=== PATIENT | male | born 1995 | race Caucasian/White ===

== ENCOUNTER 2017-02-17 22:15 | Emergency (ER) | payer MEDICAID ==
[~2017-02-17] VITALS: Ht 172.7 cm; Wt 81.6 kg
[2017-02-17 22:22] VITALS: BP 140/90
[2017-02-18] MEDS ORDERED: IBUPROFEN 600 MG TAB PO ONE (00:45)
[2017-02-18] MEDS ORDERED: LORazepam 0.5 MG TAB PO ONE (00:45)
== END 2017-02-18 01:15 | disposition home or self-care (01) ==
LOC: EDBD 22:15 → ER 22:21
DX: F41.9 Anxiety disorder, unspecified (principal); M79.672 Pain in left foot; M79.671 Pain in right foot; F12.10 Cannabis abuse, uncomplicated

== ENCOUNTER 2017-03-27 16:05 | Emergency (ER) | payer MEDICAID ==
[~2017-03-27] VITALS: Ht 172.7 cm; Wt 81.6 kg
[2017-03-27] MEDS ORDERED: LORazepam 2MG/ML-1ML VIAL IV ONE (19:00)
[2017-03-27] MEDS ORDERED: SODIUM CHLORIDE 0.9% 1,000 ML IV ONE (19:00)
[2017-03-27 20:06] LABS: Albumin 4.3 g/dL (3.4-5.0); Anion Gap 8 (5-15); Blood Urea Nitrogen 5 mg/dL (7-18); Calcium 8.8 mg/dL (8.5-10.1); Carbon Dioxide 26 mmol/L (21-32); Chloride 107 mmol/L (98-107); Glucose 101 mg/dL (74-106); Sodium 141 mmol/L (136-145)
[2017-03-27 20:08] LABS: Aspartate Aminotransferase 31 U/L (15-37); BUN/Creatinine Ratio 5.9; GFR African American 144 mL/min; GFR Non-African American 119 mL/min
[2017-03-27 20:09] LABS: Basophils # (auto) 0 uL; Basophils % (auto) 0.1 % (0.0-2.0); Eosinophils # (auto) 0 uL; Eosinophils % (auto) 0.2 % (0.0-7.0); Hematocrit 45.6 % (41.0-53.0); Hemoglobin 15.3 g/dL (13.5-17.5); Lymphocytes # (auto) 1.3 uL; Lymphocytes % (auto) 9.6 % (10.0-50.0); Mean Corpuscular Hemoglobin 30.6 pg (28.0-32.0); Mean Corpuscular Hgb Conc. 33.6 g/dL (32.0-36.0); Mean Corpuscular Volume 91.1 fL (80.0-100.0); Mean Platelet Volume 10.9 fL (7.4-10.4); Monocytes # (auto) 0.9 uL; Monocytes % (auto) 6.9 % (0.0-12.0); Neutrophils # (auto) 11.4 uL; Neutrophils % (auto) 83.2 % (37.0-80.0); Platelet Count (auto) 226 10^3/uL (140-450); Red Cell Distribution Width 14.7 % (11.6-16.0); SUSPECT VIEW TRANSMISSION; White Blood Cell 13.7 10^3/uL (4.4-10.8)
[2017-03-27 20:10] LABS: Alkaline Phosphatase 85 U/L (45-117); Bilirubin, Total 0.4 mg/dL (0.2-1.0); Total Protein 7.4 g/dL (6.4-8.2)
[2017-03-27 21:00] VITALS: BP 106/64
[2017-03-27 21:32] LABS: Giant Platelets Few; Platelet Estimate Adequate
== END 2017-03-27 21:38 | disposition home or self-care (01) ==
LOC: ER 16:05 → EDBD 16:05 → ER 21:38
DX: R56.9 Unspecified convulsions (principal); F41.9 Anxiety disorder, unspecified; F12.10 Cannabis abuse, uncomplicated; F15.10 Other stimulant abuse, uncomplicated; F14.10 Cocaine abuse, uncomplicated; Z79.899 Other long term (current) drug therapy
CPT/HCPCS: 36415; 80053; 80320; 85025; 96361; 96374; 99284; J2060; J7030

== ENCOUNTER 2017-03-30 01:09 | Emergency (ER) | payer MEDICAID ==
[~2017-03-30] VITALS: Ht 177.8 cm; Wt 86.2 kg
[2017-03-30 05:37] VITALS: BP 146/67
[2017-03-30 06:22] LABS: Basophils # (auto) 0.1 uL; Basophils % (auto) 0.4 % (0.0-2.0); Eosinophils # (auto) 0.1 uL; Hematocrit 48.5 % (41.0-53.0); Hemoglobin 16.5 g/dL (13.5-17.5); Lymphocytes # (auto) 2.5 uL; Lymphocytes % (auto) 17.4 % (10.0-50.0); Mean Corpuscular Hemoglobin 31.5 pg (28.0-32.0); Mean Corpuscular Volume 92.5 fL (80.0-100.0); Mean Platelet Volume 10.4 fL (7.4-10.4); Monocytes # (auto) 1.3 uL; Monocytes % (auto) 9.1 % (0.0-12.0); Neutrophils # (auto) 10.4 uL; Neutrophils % (auto) 72.1 % (37.0-80.0); Platelet Count (auto) 233 10^3/uL (140-450); Red Cell Distribution Width 14.6 % (11.6-16.0); SUSPECT VIEW TRANSMISSION; White Blood Cell 14.4 10^3/uL (4.4-10.8)
[2017-03-30 06:59] LABS: Albumin 4.4 g/dL (3.4-5.0); Alkaline Phosphatase 96 U/L (45-117); Anion Gap 8 (5-15); Aspartate Aminotransferase 34 U/L (15-37); BUN/Creatinine Ratio 13.9; Bilirubin, Total 0.5 mg/dL (0.2-1.0); Blood Urea Nitrogen 10 mg/dL (7-18); Calcium 9.3 mg/dL (8.5-10.1); Carbon Dioxide 28 mmol/L (21-32); Chloride 103 mmol/L (98-107); GFR African American 174 mL/min; GFR Non-African American 144 mL/min; Glucose 111 mg/dL (74-106); Magnesium 2.7 mg/dL (1.6-2.6); Potassium 4.4 mmol/L (3.5-5.1); Sodium 139 mmol/L (136-145)
[2017-03-30 07:03] LABS: Giant Platelets Few; Large Platelets FEW; Platelet Estimate Adequate
== END 2017-03-30 06:45 | disposition home or self-care (01) ==
LOC: ER 01:09
DX: F41.9 Anxiety disorder, unspecified (principal); F12.10 Cannabis abuse, uncomplicated; F15.10 Other stimulant abuse, uncomplicated; F14.10 Cocaine abuse, uncomplicated
CPT/HCPCS: 36415; 80053; 83735; 84484; 85025; 93005; 94761

== ENCOUNTER 2017-04-09 22:41 | Emergency (ER) | payer MEDICAID ==
[~2017-04-09] VITALS: Ht 180.3 cm; Wt 90.7 kg
[2017-04-09 23:05] LABS: Basophils # (auto) 0.1 uL; Basophils % (auto) 0.7 % (0.0-2.0); Eosinophils # (auto) 0.1 uL; Hematocrit 45.7 % (41.0-53.0); Hemoglobin 15.5 g/dL (13.5-17.5); Lymphocytes # (auto) 3.1 uL; Lymphocytes % (auto) 25.9 % (10.0-50.0); Mean Corpuscular Hemoglobin 30.7 pg (28.0-32.0); Mean Corpuscular Hgb Conc. 33.8 g/dL (32.0-36.0); Mean Corpuscular Volume 90.7 fL (80.0-100.0); Mean Platelet Volume 9.8 fL (7.4-10.4); Monocytes % (auto) 8.2 % (0.0-12.0); Neutrophils # (auto) 7.8 uL; Neutrophils % (auto) 64.2 % (37.0-80.0); Platelet Count (auto) 283 10^3/uL (140-450); Red Cell Distribution Width 14.5 % (11.6-16.0); SUSPECT VIEW TRANSMISSION; White Blood Cell 12.1 10^3/uL (4.4-10.8)
[2017-04-09 23:23] LABS: Anion Gap 15 (5-15); Aspartate Aminotransferase 19 U/L (15-37); BUN/Creatinine Ratio 8.3; Blood Urea Nitrogen 8 mg/dL (7-18); Calcium 8.7 mg/dL (8.5-10.1); Carbon Dioxide 20 mmol/L (21-32); Chloride 109 mmol/L (98-107); GFR African American 125 mL/min; GFR Non-African American 103 mL/min; Glucose 77 mg/dL (74-106); Magnesium 2.1 mg/dL (1.6-2.6); Potassium 3.7 mmol/L (3.5-5.1); Sodium 144 mmol/L (136-145)
[2017-04-09 23:28] LABS: Alkaline Phosphatase 82 U/L (45-117); Bilirubin, Total 0.4 mg/dL (0.2-1.0); Total Protein 7.5 g/dL (6.4-8.2)
[2017-04-10] MEDS ORDERED: IBUPROFEN 600 MG TAB PO ONE (03:15)
[2017-04-10 03:51] VITALS: BP 121/74
[2017-04-10 03:56] LABS: Urine Bilirubin Negative (Negative); Urine Blood Negative /uL (Negative); Urine Color Yellow (Yellow); Urine Glucose Normal (Normal); Urine Ketone TRACE (Negative); Urine Nitrite Negative (Negative); Urine RBC <1 /hpf (0 - 3); Urine Urobilinogen Normal (Negative); Urine pH 5.5 (5.0-8.0)
[2017-04-10] MEDS ORDERED: ALPRAZolam 0.25 MG TAB ONE (04:49)
[2017-04-10] MEDS ORDERED: ALPRAZolam 0.5 MG TAB PO ONE (05:00)
== END 2017-04-10 05:03 | disposition home or self-care (01) ==
LOC: ER 22:41
DX: F41.9 Anxiety disorder, unspecified (principal); R07.89 Other chest pain; F12.10 Cannabis abuse, uncomplicated; F15.10 Other stimulant abuse, uncomplicated; F14.10 Cocaine abuse, uncomplicated
CPT/HCPCS: 36415; 80053; 80307; 81001; 83735; 84484; 85025; 93005

== ENCOUNTER 2017-04-13 17:48 | Emergency (ER) | payer MEDICAID | END 2017-04-13 19:11 | disposition left against medical advice (07) | LOC: EDBD 17:48 → ER 17:52 | DX: R68.2 Dry mouth, unspecified (principal); R42 Dizziness and giddiness; Z53.21 Procedure and treatment not carried out due to patient leaving prior to being seen by health care provider ==

== ENCOUNTER 2017-05-11 00:30 | Emergency (ER) | payer MEDICAID ==
[~2017-05-11] VITALS: Ht 177.8 cm; Wt 90.7 kg
[2017-05-11 07:58] LABS: Basophils # (auto) 0.1 uL; Basophils % (auto) 0.5 % (0.0-2.0); CONDITION AutoValidated; Eosinophils # (auto) 0.2 uL; Eosinophils % (auto) 1.4 % (0.0-7.0); Hematocrit 44.8 % (41.0-53.0); Hemoglobin 15.1 g/dL (13.5-17.5); Lymphocytes # (auto) 2.5 uL; Lymphocytes % (auto) 22.7 % (10.0-50.0); Mean Corpuscular Hemoglobin 30.9 pg (28.0-32.0); Mean Corpuscular Hgb Conc. 33.6 g/dL (32.0-36.0); Mean Corpuscular Volume 92.1 fL (80.0-100.0); Mean Platelet Volume 9.9 fL (7.4-10.4); Monocytes # (auto) 0.8 uL; Monocytes % (auto) 7.5 % (0.0-12.0); Neutrophils # (auto) 7.5 uL; Neutrophils % (auto) 67.9 % (37.0-80.0); Platelet Count (auto) 223 10^3/uL (140-450); Red Cell Distribution Width 15.2 % (11.6-16.0); SUSPECT SEE PRINTOUT
[2017-05-11 08:18] LABS: Acetaminophen < 2.0 ug/mL (10-30)
[2017-05-11 08:23] LABS: BUN/Creatinine Ratio 14.7; Bilirubin, Total 0.3 mg/dL (0.2-1.0); Calcium 8.2 mg/dL (8.5-10.1); Magnesium 2.3 mg/dL (1.6-2.6); Potassium 4.2 mmol/L (3.5-5.1); Total Protein 7.1 g/dL (6.4-8.2)
[2017-05-11 08:45] LABS: Salicylate 5.2 mg/dL (2.8-20.0)
[2017-05-11] MEDS ORDERED: OLANZapine 5 MG TAB PO ONE (11:00)
[2017-05-11] MEDS ORDERED: ALPRAZolam 0.5 MG TAB PO ONE (11:00)
[2017-05-11] MEDS ORDERED: SODIUM CHLORIDE 0.9% 1,000 ML IV ONE (11:00)
[2017-05-11 13:05] LABS: Urine Bilirubin Negative (Negative); Urine Blood Negative /uL (Negative); Urine Color Yellow (Yellow); Urine Glucose Normal (Normal); Urine Ketone Negative (Negative); Urine Nitrite Negative (Negative); Urine RBC <1 /hpf (0 - 3); Urine Urobilinogen Normal (Negative); Urine pH 7.5 (5.0-8.0)
[2017-05-11 15:50] VITALS: BP 135/78
== END 2017-05-11 08:10 | disposition home or self-care (01) ==
LOC: ER 00:30 → EDBD 00:30 → ER 08:10
DX: F32.9 Major depressive disorder, single episode, unspecified (principal); R45.851 Suicidal ideations; F12.10 Cannabis abuse, uncomplicated; F15.10 Other stimulant abuse, uncomplicated; F14.10 Cocaine abuse, uncomplicated
CPT/HCPCS: 36415; 71020; 80053; 80307; 80329; 81001; 83735; 85025; 96360; 99285; J7030

== ENCOUNTER 2018-05-05 01:19 | Emergency (ER) | payer OTHER ==
[~2018-05-05] VITALS: Ht 180.3 cm; Wt 90.7 kg
[2018-05-05 02:14] VITALS: BP 124/82
== END 2018-05-05 06:35 | disposition left against medical advice (07) ==
LOC: ER 01:22
DX: M79.672 Pain in left foot (principal); Z53.21 Procedure and treatment not carried out due to patient leaving prior to being seen by health care provider

== ENCOUNTER 2018-05-05 08:49 | Emergency (ER) | payer OTHER ==
[~2018-05-05] VITALS: Ht 180.3 cm; Wt 90.7 kg
[2018-05-05 10:24] VITALS: BP 137/73
== END 2018-05-05 10:26 | disposition home or self-care (01) ==
LOC: ER 08:54
DX: F19.10 Other psychoactive substance abuse, uncomplicated (principal); R11.2 Nausea with vomiting, unspecified; F15.10 Other stimulant abuse, uncomplicated

== ENCOUNTER 2018-05-17 16:05 | Emergency (ER) | payer OTHER ==
[~2018-05-17] VITALS: Ht 180.3 cm; Wt 90.7 kg
[2018-05-17 16:43] VITALS: BP 138/84
== END 2018-05-17 17:48 | disposition left against medical advice (07) ==
LOC: ER 16:05
DX: F41.9 Anxiety disorder, unspecified (principal); Z53.21 Procedure and treatment not carried out due to patient leaving prior to being seen by health care provider

== ENCOUNTER 2018-05-18 02:18 | Emergency (ER) | payer OTHER ==
[~2018-05-18] VITALS: Ht 193 cm; Wt 90.7 kg
[2018-05-18 02:23] VITALS: BP 117/87
== END 2018-05-18 05:32 | disposition left against medical advice (07) ==
LOC: ER 02:27
DX: F41.9 Anxiety disorder, unspecified (principal); Z53.21 Procedure and treatment not carried out due to patient leaving prior to being seen by health care provider

== ENCOUNTER 2018-07-08 06:59 | Emergency (ER) | payer OTHER ==
[~2018-07-08] VITALS: Ht 182.9 cm; Wt 76.7 kg
[2018-07-08 07:12] VITALS: BP 129/90
[2018-07-08] MEDS ORDERED: diphenhdrAMINE HCL 50 MG/1 ML VL IM ONE ×2 (07:30→08:00)
== END 2018-07-08 08:20 | disposition home or self-care (01) ==
LOC: EDBD 06:59 → ER 06:59
DX: F41.9 Anxiety disorder, unspecified (principal)
CPT/HCPCS: 93005; 96372; 99284; J1200

== ENCOUNTER 2019-09-16 10:55 | Inpatient (IN) | payer MEDICAID ==
[~2019-09-16] VITALS: Ht 180.3 cm; Wt 68.0 kg
[2019-09-16] MEDS ORDERED: SODIUM CHLORIDE 0.9% 500 ML IV ONE (10:56)
[2019-09-16] MEDS ORDERED: CLINDAMYCIN 600MG IV 50 ML IV ONE (11:00)
[2019-09-16 12:01] LABS: Basophils # (auto) 0.1 uL; Basophils % (auto) 0.6 % (0.0-2.0); Eosinophils # (auto) 1.1 uL; Eosinophils % (auto) 10.7 % (0.0-7.0); Hematocrit 45.5 % (41.0-53.0); Hemoglobin 14.7 g/dL (13.5-17.5); Lymphocytes # (auto) 1.5 uL; Lymphocytes % (auto) 14.8 % (10.0-50.0); Mean Corpuscular Hemoglobin 30.2 pg (28.0-32.0); Mean Corpuscular Hgb Conc. 32.2 g/dL (32.0-36.0); Mean Corpuscular Volume 93.8 fL (80.0-100.0); Monocytes # (auto) 0.6 uL; Monocytes % (auto) 6.2 % (0.0-12.0); Neutrophils % (auto) 67.7 % (37.0-80.0); Nucleated Red Blood Cells % 0.1 %; Platelet Count (auto) 308 10^3/uL (140-450); Red Blood Cells 4.86 10^6/uL (4.5-5.90); Red Cell Distribution Width 15.5 % (11.8-14.3); White Blood Cell 10.4 10^3/uL (4.4-10.8)
[2019-09-16] MEDS ORDERED: PROMETHAZINE HCL 25 MG/ML 1ML IV PRN (13:45)
[2019-09-16] MEDS ORDERED: traMADol HCL 50 MG TAB PO PRN (13:45)
[2019-09-16] MEDS ORDERED: ACETAMINOPHEN 500 MG TAB PO PRN (13:45)
[2019-09-16] MEDS ORDERED: TEMAZEPAM 15 MG CAP PO PRN (13:45)
[2019-09-16] MEDS ORDERED: LACTULOSE 20Gm/30ML SOLN PO PRN (13:45)
[2019-09-16] MEDS: CLINDAMYCIN 600MG IV 50 ML IV SCH ×2 (14:00→22:35)
[2019-09-16] MEDS ORDERED: LEVOFLOXACIN 500MG 100 ML IV ONE (14:00)
[2019-09-16] MEDS: SODIUM CHLORIDE 0.9% 1,000 ML IV SCH ×2 (14:25→23:44)
[2019-09-16] MEDS: KETOROLAC TROMETH 30 MG/ML 1ML VIAL IV PRN ×2 (14:25→21:29)
[2019-09-16 15:20] LABS: Albumin 3.1 g/dL (3.4-5.0); BUN/Creatinine Ratio 8.2; Calcium 8.7 mg/dL (8.5-10.1); Potassium 3.9 mmol/L (3.5-5.1)
[2019-09-16 15:22] LABS: Bilirubin, Total 0.3 mg/dL (0.2-1.0); Total Protein 7.1 g/dL (6.4-8.2)
--- NOTE | 2019-09-16 15:30 | NUR ---
Pt Arrived on Unit Pt arrived on unit via stretcher. Pt is a/ox4 with no s/s of distress or SOB. Pt was able to scoot to bed from stretcher with no difficulty. Safety measures maintained with call light within reach, bed in lowest position and side rails up. Will continue to monitor for changes q1hr and prn.
--- NOTE | 2019-09-16 16:10 | NUR ---
Wound Pictures Taken for Reference Applied optifoam and medical tape to wound after picture taken. Minimal serous fluid draining from site. Reinforced dressing with stocking to keep intact. Will continue to monitor.
[2019-09-16 16:52] VITALS: BP 132/72
[2019-09-16 17:07] VITALS: BP 132/72
--- NOTE | 2019-09-16 17:24 | NUR ---
Pt Medications Pt states he does not know his current list of medications. States he can have someone bring in list tomorrow.
--- NOTE | 2019-09-16 18:04 | NUR ---
[facility] Nares Sent to Lab
--- NOTE | 2019-09-16 18:50 | NUR ---
Pt Is Demanding to Be see By an MD Pt stated that he "needs to be seen hiwot". That his wound to his leg is not cellulitis and needs to have treatment now. Discussed with pt that this is why he is hospitalized, we are treating him with IV antibiotics and we are aware of his wound. I told him that an MD will see him in the Am but for now he is stable and we are aware of his treatment needs. Pt stated that he needs more treatment.
--- NOTE | 2019-09-16 19:55 | NUR ---
Opening Shift Note Assumed care of patient, alert and oriented x 4. No S/S of distress/SOB. Patient C/O pain 7/10 to left leg. Bed in lowest locked position, side rails up x 2, call light within reach. Instructed on POC and to call for assist PRN, will continue to monitor for changes Q1hr and PRN.
[2019-09-16 20:00] VITALS: BP 141/75
[2019-09-16 22:00] VITALS: BP 141/75
--- NOTE | 2019-09-16 22:00 | NUR ---
Patient requesting Ativan. Appeared agitated. Patient stated, "It's the only thing that helps me to sleep well at night." Gave patient the option to take ordered Restoril but patient reported he does not want to take it and refused med. Jarad Kent NP. Made aware of patient's request and agitation. Received verbal order to discontinue Restoril and order Ativan 0.5mg IV HS PRN. Will carry out orders and continue care.
[2019-09-16] MEDS ORDERED: LORazepam 2MG/ML-1ML VIAL IV PRN (22:15)
[2019-09-17] MEDS: KETOROLAC TROMETH 30 MG/ML 1ML VIAL IV PRN (03:53)
[2019-09-17 05:00] VITALS: BP 106/62
[2019-09-17] MEDS: CLINDAMYCIN 600MG IV 50 ML IV SCH (06:11)
[2019-09-17 09:00] VITALS: BP 104/62
[2019-09-17] MEDS ORDERED: ENOXAPARIN SOD 40 MG/0.4 ML SYRINGE SC SCH (10:00)
[2019-09-17] MEDS ORDERED: LEVOFLOXACIN 500MG 100 ML IV SCH (10:00)
[2019-09-17] MEDS: SODIUM CHLORIDE 0.9% 1,000 ML IV SCH (10:12)
--- NOTE | 2019-09-17 10:20 | NUR ---
PATIENTS GRANDFATHER ON THE LINE REQUESTING INFORMATION REGARDING PATIENT STATUS. INFORMED THAT NO INFORMATION COULD BE GIVEN DUE TO NO PASSWORD BEING SET UP. TRANSFERRED GRANDFATHER TO PATIENTS ROOM. THIS RN WALKED INTO PATIENT ROOM AND WITNESSED PATIENT ANSWER PHONE. PATIENT THEN HUNG UP PHONE AND ASKED THE NURSE "WHY DID YOU DO THAT?" THIS RN ASKED THE PATIENT WHAT HAPPENED AND THE PATIENT STATED "YOU HUNG UP THE PHONE ON MY GRANDPA, I DON'T WANT YOU MY NURSE ANYMORE." THIS RN STATED THAT HE HAD DONE NOTHING TO THE PHONE CALL BUT PATIENT REFUSED TO LISTEN.
--- NOTE | 2019-09-17 10:30 | NUR ---
PATIENT APOLOGIZED FOR RAISING HIS VOICE TO THIS RN. STATED HE WAS JUST UPSET ABOUT BEING "RUDELY AWAKENED."
--- NOTE | 2019-09-17 12:00 | NUR ---
IV removal IV DC'd with clean sterile technique, catheter fully intact. Pressure dressing applied to site. Patient tolerated well. Patient refused to have new IV placed.
--- NOTE | 2019-09-17 12:15 | NUR ---
Called wound care nurse. No one available to answer phone call. will attempt at a later time.
--- NOTE | 2019-09-17 12:43 | NUR ---
PATIENT ROLLED OUT OF ROOM IN WHEELCHAIR. PATIENT STATING HE WAS GOING HOME BECAUSE HE NEEDED TO WORK. PATIENT INSTRUCTED OF RISKS OF LEAVING HOSPITAL WITHOUT BEING SEEN BY ATTENDING [place]. PATIENT STILL DETERMINED TO LEAVE. REFUSED TO SIGN PAPERWORK. JUSTO Rod ANGY TO INFORM OF SITUATION.
== END 2019-09-17 12:43 | disposition left against medical advice (07) | DRG 383 ==
LOC: ER 10:55 → EDBD 10:55 → OVERFLOW 10:56 → CENTRAL 15:34
PROVIDERS: ADMIT Internal Medicine; ATTEND Internal Medicine
DX: L02.416 Cutaneous abscess of left lower limb (principal); S81.802A Unspecified open wound, left lower leg, initial encounter; X58.XXXA Exposure to other specified factors, initial encounter; L03.116 Cellulitis of left lower limb; Z53.29 Procedure and treatment not carried out because of patient's decision for other reasons; Z82.49 Family history of ischemic heart disease and other diseases of the circulatory system; Z83.3 Family history of diabetes mellitus; Y93.89 Activity, other specified; Y92.89 Other specified places as the place of occurrence of the external cause; Y99.8 Other external cause status
CPT/HCPCS: 36415; 73700; 80053; 85025; 87040; 87081; 94761; 96361; 96365; 96367; 96375; G0378; J1885; J1956; J3490

== ENCOUNTER 2019-10-15 04:02 | Emergency (ER) | payer MEDICAID ==
[~2019-10-15] VITALS: Ht 177.8 cm; Wt 90.7 kg
[2019-10-15 05:21] LABS: Urine WBC None Seen /hpf (0 - 3)
[2019-10-15 05:27] LABS: Urine Bacteria NONE SEEN /hpf (None Seen); Urine Blood Negative /uL (Negative); Urine Specific Gravity 1.001 (1.001-1.035)
[2019-10-15 05:52] LABS: Alcohol, Urine < 3.0 mg/dL (0-5); Amphetamine Screen, Urine NEGATIVE (NEGATIVE); Barbiturate Scree,Urine NEGATIVE (NEGATIVE); Benzodiazephine Screen, Urine NEGATIVE (NEGATIVE); Cannabinoid Screen, Urine POSITIVE (NEGATIVE); Cocaine Screen, Urine NEGATIVE (NEGATIVE); Opiate Scree,Urine NEGATIVE (NEGATIVE); Phencyclidine Screen, Urine NEGATIVE (NEGATIVE)
[2019-10-15 06:32] LABS: Basophils # (auto) 0.1 uL; Basophils % (auto) 1.1 % (0.0-2.0); Eosinophils # (auto) 0.4 uL; Eosinophils % (auto) 4.4 % (0.0-7.0); Hematocrit 38.8 % (41.0-53.0); Hemoglobin 12.7 g/dL (13.5-17.5); Lymphocytes # (auto) 1.7 uL; Lymphocytes % (auto) 18.7 % (10.0-50.0); Mean Corpuscular Hemoglobin 29.3 pg (28.0-32.0); Mean Corpuscular Hgb Conc. 32.8 g/dL (32.0-36.0); Mean Corpuscular Volume 89.3 fL (80.0-100.0); Monocytes # (auto) 0.8 uL; Monocytes % (auto) 9.1 % (0.0-12.0); Neutrophils # (auto) 6.1 uL; Neutrophils % (auto) 66.7 % (37.0-80.0); Platelet Count (auto) 259 10^3/uL (140-450); Red Blood Cells 4.34 10^6/uL (4.5-5.90); Red Cell Distribution Width 15.7 % (11.8-14.3); White Blood Cell 9.1 10^3/uL (4.4-10.8)
[2019-10-15 06:42] LABS: Acetaminophen < 2.0 ug/mL (10-30); Albumin 3.3 g/dL (3.4-5.0); BUN/Creatinine Ratio 13.4; Calcium 8.2 mg/dL (8.5-10.1); Potassium 3.8 mmol/L (3.5-5.1); Salicylate < 1.7 mg/dL (2.8-20.0)
[2019-10-15 06:45] LABS: Bilirubin, Total 0.1 mg/dL (0.2-1.0); Total Protein 7.1 g/dL (6.4-8.2)
[2019-10-15 06:48] VITALS: BP 119/73
[2019-10-15] MEDS ORDERED: ACETAMINOPHEN 325 MG TAB PO ONE (08:15)
[2019-10-15] MEDS ORDERED: OLANZapine 5 MG TAB PO ONE (10:00)
[2019-10-15] MEDS ORDERED: HYDROcodone-ACET 10/325MG TAB PO ONE (10:00)
[2019-10-15] MEDS ORDERED: NEOMYCIN-BACITRACIN-POLYM UNITDOSE PKG TOP OINT TOP ONE (16:09)
== END 2019-10-15 12:54 | disposition home or self-care (01) ==
LOC: ER 04:02 → EDBD 04:02 → ER 12:54
DX: F31.9 Bipolar disorder, unspecified (principal)
CPT/HCPCS: 36415; 80053; 80307; 80329; 81001; 85025

== ENCOUNTER 2020-10-18 21:34 | Emergency (ER) | payer MEDICAID ==
[~2020-10-18] VITALS: Ht 167.6 cm; Wt 90.7 kg
[2020-10-18 21:50] VITALS: BP 129/79
== END 2020-10-18 21:58 | disposition left against medical advice (07) ==
LOC: EDBD 21:34 → ER 21:36
DX: F10.920 Alcohol use, unspecified with intoxication, uncomplicated (principal); Z53.21 Procedure and treatment not carried out due to patient leaving prior to being seen by health care provider

== ENCOUNTER 2023-05-04 00:55 | Emergency (ER) | payer MEDICAID ==
[~2023-05-04] VITALS: Ht 172.7 cm; Wt 85.0 kg
[2023-05-04 01:43] VITALS: BP 126/84
[2023-05-04 05:41] LABS: Basophils # (auto) 0.1 10 ^3/uL (0-0.2); Basophils % (auto) 0.4 % (0.0-2.0); Eosinophils # (auto) 0.1 10 ^3/uL (0-0.8); Eosinophils % (auto) 0.4 % (0.0-7.0); Hematocrit 45.5 % (41.0-53.0); Hemoglobin 15.3 g/dL (13.5-17.5); Lymphocytes # (auto) 2.6 10 ^3/uL (0.4-5.4); Lymphocytes % (auto) 17.5 % (10.0-50.0); Mean Corpuscular Hemoglobin 30.9 pg (28.0-32.0); Mean Corpuscular Hgb Conc. 33.6 g/dL (32.0-36.0); Monocytes # (auto) 1.3 10 ^3/uL (0-1.3); Monocytes % (auto) 9.1 % (0.0-12.0); Neutrophils # (auto) 10.6 10 ^3/uL (1.6-8.6); Neutrophils % (auto) 72.6 % (37.0-80.0); Nucleated Red Blood Cells % 0.1 %; Red Blood Cells 4.94 10^6/uL (4.5-5.90); Red Cell Distribution Width 14.9 % (11.8-14.3); White Blood Cell 14.7 10^3/uL (4.4-10.8)
[2023-05-04 05:57] LABS: Albumin 4.5 g/dL (3.4-5.0); Calcium 8.3 mg/dL (8.5-10.1); Magnesium 2.2 mg/dL (1.6-2.6); Potassium 4.1 mmol/L (3.5-5.1)
[2023-05-04 06:02] LABS: BUN/Creatinine Ratio 8.5 (10.0-20.0); Bilirubin, Total 0.5 mg/dL (0.2-1.0); Lactic Acid w/Reflex 2.2 mmol/L (0.4-2.0); Total Protein 7.6 g/dL (6.4-8.2)
[2023-05-04 07:18] LABS: INR 1.01 (0.9-1.15); Partial Thromboplastin Time 27.1 sec (24.6-33.4)
== END 2023-05-04 06:31 | disposition left against medical advice (07) ==
LOC: ER 00:55 → EDBD 00:55 → ER 06:10
DX: S00.11XA Contusion of right eyelid and periocular area, initial encounter (principal); R41.82 Altered mental status, unspecified; Y09 Assault by unspecified means; X58.XXXA Exposure to other specified factors, initial encounter; Y93.89 Activity, other specified; Y92.89 Other specified places as the place of occurrence of the external cause; Y99.8 Other external cause status
CPT/HCPCS: 36415; 80053; 80320; 83605; 83690; 83735; 84484; 85025; 85379; 85610; 85730; 87040; 99291